=== PATIENT | female | born 1945 | race Caucasian/White ===

== ENCOUNTER 2018-12-11 11:33 | Outpatient (CLI) | payer MEDICARE, BC | END 2018-12-11 11:34 | disposition home or self-care (01) | DRG 563 | LOC: CONVCARE 11:33 | PROVIDERS: ATTEND Orthopaedic Surgery | DX: S52.502A Unspecified fracture of the lower end of left radius, initial encounter for closed fracture (principal) | CPT/HCPCS: 73100 ==

== ENCOUNTER 2019-01-08 10:24 | Outpatient (CLI) | payer MEDICARE, BC | END 2019-01-08 10:25 | disposition home or self-care (01) | DRG 561 | LOC: CONVCARE 10:24 | PROVIDERS: ATTEND Orthopaedic Surgery | DX: S52.502D Unspecified fracture of the lower end of left radius, subsequent encounter for closed fracture with routine healing (principal) | CPT/HCPCS: 73110 ==

== ENCOUNTER 2019-01-29 10:54 | Outpatient (CLI) | payer MEDICARE, BC | END 2019-01-29 10:55 | disposition home or self-care (01) | DRG 561 | LOC: CONVCARE 10:54 | PROVIDERS: ATTEND Orthopaedic Surgery | DX: S52.502D Unspecified fracture of the lower end of left radius, subsequent encounter for closed fracture with routine healing (principal) | CPT/HCPCS: 73110 ==